=== PATIENT | male | born 1980 | race Caucasian/White ===

== ENCOUNTER 2024-05-05 10:27 | Outpatient (CLI) | payer OTHER | END 2024-05-05 10:28 | disposition home or self-care (01) | LOC: CSHLAB 10:27 | PROVIDERS: ATTEND Specialist | DX: Z01.818 Encounter for other preprocedural examination (principal); J38.3 Other diseases of vocal cords | CPT/HCPCS: 93005; 93010 ==

== ENCOUNTER → 2024-05-08 | Day surgery (SDC) | payer OTHER ==
[2024-05-05 10:42] VITALS: BMI 21.2
[~2024-05-08] MED LIST: EPINEPHrine 1 MG/ML VIAL ONE; Midazolam HCl 2 mg/2 ml Vial ONE; PROPOFOL 40 ML ONE; Propofol 1,000 MG/100 ML VIAL IV ONE; SUGAMMADEX SODIUM 200 MG/2 ML VIAL ONE; Silver Nitrate Application 1 EACH ONE; fentaNYL 50 mcg/mL 1 mL Vial ONE
== END ==
LOC: CSHSDC 11:53
PROVIDERS: ATTEND Specialist
PROC: 0CBT8ZX Excision of Right Vocal Cord, Via Natural or Artificial Opening Endoscopic, Diagnostic (ICD-10-PCS; principal; 2024-05-08)
DX: J38.7 Other diseases of larynx (principal); K21.9 Gastro-esophageal reflux disease without esophagitis; Z90.89 Acquired absence of other organs; Z98.890 Other specified postprocedural states; Z79.899 Other long term (current) drug therapy
CPT/HCPCS: 88305; 88312; J0171; J2250; J2704; J3010